=== PATIENT | male | born 1955 | race Caucasian/White ===

== ENCOUNTER 2019-10-26 13:41 | Inpatient (IN) | payer MEDICAID, OTHER ==
[~2019-10-26] VITALS: Ht 172.7 cm; Wt 71.7 kg
[2019-10-26 13:58] VITALS: BP 98/52
--- NOTE | 2019-10-26 14:00 | NUR ---
CANDIS FROM [facility] W C/O GENERALIZED WEAKNESS STARTING TODAY. PT GCS 13 (4,5,4). PT SPEECH IS MUMBLED AND PT IS POOR MEDICAL HX HISTORIAN. PT HAS OBVIOUS TREMORS TO BILAT UPPER EXTREMETIES. DENIES ETOH USE. PT IS CURRENTLY TAKING PSYCHOTROPIC MEDICATION ACCORDING TO DOCUMENTATION FROM FACILITY. PT IS UNABLE TO VERBALIZE HIS MEDICAL HX OR WHY HE IS IN THE ER AT THIS TIME. PT REFUSES TO REMOVE CLOTHING TO CHANGE INTO GOWN. PT IS HYPOTENSIVE AT 95/55 AT THIS TIME, ERMD AWARE. FSBS 98. NO SLURRED SPEECH, FACIAL DROOP OR UNILATERAL WEAKNESS NOTED. PT IN BED IN LOW POSITION, SIDE RAIL UP X2 FOR PT SAFTEY. PT PLACED ON BEDSIDE EPIC WILLOW SPECIALIST AT THIS TIME.
--- NOTE | 2019-10-26 14:38 | NUR ---
ATTEMPTED TO CONACT RENÉE GUEST R[facility] VERDE FOR MORE INFORMATION, NO ANSWER @ [phone]
[2019-10-26] MEDS ORDERED: ACETAMINOPHEN EXTRA STRENGTH 500 MG TAB ONE (14:45)
[2019-10-26] MEDS ORDERED: ACETAMINOPHEN EXTRA STRENGTH 500 MG TAB PO ONE (14:45)
[2019-10-26] MEDS ORDERED: NACL 0.9% 2,000 ML IV SCH (15:33)
[2019-10-26] MEDS ORDERED: diphenhydrAMINE 50 MG/ML VIAL IVP ONE (15:35)
--- NOTE | 2019-10-26 15:53 | NUR ---
MOVED TO ED 05 FOR CONTINUED OBSERVATION
[2019-10-26] MEDS ORDERED: PIPERACILLIN/TAZOBACTAM 3.375 GM in DEXTROSE 5% 50 ML IV ONE (16:00)
[2019-10-26] MEDS ORDERED: LORazepam 2 MG/ML VIAL IVP ONE (16:05)
--- NOTE | 2019-10-26 16:13 | NUR ---
XRAY AT BEDSIDE
[2019-10-26] MEDS ORDERED: PIPERACILLIN/TAZOBACTAM 3.375 GM VIAL IV ONE (16:26)
[2019-10-26 16:47] LABS: HEMOGLOBIN 9.6 g/dL (12.0-18.0); MEAN CORPUSCULAR HEMOGLOBIN 32 pg (27-31); MEAN CORPUSCULAR HGB CONC 33 g/dL (33-37); MEAN CORPUSCULAR VOLUME 95.4 fL (80-94); PLATELET COUNT (AUTO) 66 K/uL (140-450); RED BLOOD CELL COUNT(AUTO) 3.04 MIL/uL (4.20-6.10); WHITE BLOOD COUNT (AUTO) 11.5 K/uL (4.8-10.8)
[2019-10-26 17:07] LABS: PROTHROMBIN TIME 12.3 secs (10.8-13.4)
[2019-10-26 17:24] LABS: ANION GAP 13.6 (8-16); CARBON DIOXIDE 21.7 mmol/L (21-32); CREATININE 2.6 mg/dL (0.7-1.3); POTASSIUM 4.3 mmol/L (3.5-5.1); TOTAL BILIRUBIN 0.8 mg/dL (0.0-1.0)
[2019-10-26 17:25] LABS: ALBUMIN 1.9 g/dL (3.4-5.0)
[2019-10-26 17:48] LABS: MAGNESIUM 1.8 mg/dL (1.8-2.4)
[2019-10-26] MEDS ORDERED: NACL 0.9% 1,000 ML IV ONE (17:55)
[2019-10-26 17:57] LABS: ACETONE, SERUM NEGATIVE (NEGATIVE)
[2019-10-26] MEDS ORDERED: ACETAMINOPHEN 325 MG TAB PO PRN (18:00)
[2019-10-26] MEDS ORDERED: ALBUTEROL SULFATE/IPRATROPIU 3 ML SOL IH PRN (18:00)
[2019-10-26] MEDS ORDERED: ONDANSETRON 4 MG/2 ML VIAL IVP PRN (18:00)
[2019-10-26 18:03] LABS: APPEARANCE,URINE CLEAR (CLEAR); BILIRUBIN,URINE NEGATIVE (NEGATIVE); BLOOD, URINE TRACE-I (NEGATIVE); COLOR,URINE YELLOW (YELLOW); LEUKOCYTE ESTERASE ,URINE NEGATIVE (NEGATIVE); NITRITE, URINE NEGATIVE (NEGATIVE); UGLUCOSE NEGATIVE (NEGATIVE)
--- NOTE | 2019-10-26 18:07 | NUR ---
99.1 AUXILLARY AT THIS TIME
[2019-10-26] MEDS ORDERED: FLUN0.02 NS (18:25)
[2019-10-26] MEDS ORDERED: GABA300C PO (18:25)
[2019-10-26] MEDS ORDERED: OLAN7.5T1 PO (18:25)
[2019-10-26] MEDS ORDERED: LORA10TA19 PO (18:25)
[2019-10-26] MEDS ORDERED: OLAN20TA1 PO (18:25)
[2019-10-26] MEDS ORDERED: [UNRECOGNIZED DRUG - CODE] IM (18:27)
[2019-10-26] MEDS ORDERED: TRAZ-343 PO (18:27)
[2019-10-26 18:29] LABS: BASOPHILS % (MANUAL) 0 % (0-2); EOSINOPHILS % (MANUAL) 0 % (0-4); LYMPHOCYTES % (MANUAL) 5 % (20-46); MONOCYTES % (MANUAL) 12 % (5-12)
--- NOTE | 2019-10-26 19:15 | NUR ---
RECEIVED PATIENT FROM ER NURSE KILLIAN. PATIENT IS A/O X2. ADMITTING DX: PNEUMONIA. RESPIRATIONS EVEN, UNLABORED. ON NC 2LPM. SKIN WARM, DRY AND INTACT. ABDOMEN SOFT, NONTENDER. IV SITE TO RIGHT AC 20G CLEAN/DRY AND INTACT. VITALS WERE TAKEN, MRSA SCREEN DONE, ORIENTED PATIENT TO ROOM, STAFF AND CALL LIGHT. PLAN OF CARE WAS DISCUSSED. SAFETY MEASURES IN PLACE. BED IN LOWEST POSITION. CALL LIGHT WITHIN REACH. WILL CONTINUE TO MONITOR.
--- NOTE | 2019-10-26 19:20 | NUR ---
Patient will be admitted to care of DR RAY. Admited to TELE. Will go to room 112B. Belongings list completed. Report to SCOTT WYLIE.
[2019-10-26] MEDS: NACL 0.9% 1,000 ML IV SCH (19:54)
[2019-10-26] MEDS: ALBUTEROL SULFATE/IPRATROPIU 3 ML SOL IH SCH (20:07)
--- NOTE | 2019-10-26 20:09 | NUR ---
SPOKE TO GADIEL FROM [facility] PHONE NUMBER [phone] REGARDING PATIENT. GAVE BRIEF HISTORY BUT INCOMPLETE. SUGGESTED BEST TIME TO CALL WOULD BE ON SUNDAY AT 9-10AM. WILL ENDORSE TO AM SHIFT TO FOLLOW UP.
[2019-10-26 20:40] LABS: FREE T4 (FREE THYROXINE) 1.06 ng/dL (0.76-1.46); PHOSPHORUS 2.9 mg/dL (2.5-4.9); THYROID STIMULATING HORMONE 3.01 uIU/mL (0.34-3.74)
[2019-10-26] MEDS: DOCUSATE SODIUM 100 MG GELCAP PO SCH (20:45)
[2019-10-26 21:01] VITALS: BP 106/70
--- NOTE | 2019-10-26 21:32 | NUR ---
PATIENT ASLEEP. MD AT BEDSIDE. NO S/SX ACUTE DISTRESS. CALL LIGHT WITHIN REACH. WILL CONTINUE TO MONITOR.
[2019-10-26] MEDS ORDERED: CLINDAMYCIN 900 MG/6 ML VIAL IV ONE (21:35)
[2019-10-26] MEDS ORDERED: cefTRIAXone 1,000 MG VIAL ONE (21:36)
[2019-10-26] MEDS: CLINDAMYCIN 900 MG in DEXTROSE 5% 100 ML IV SCH (21:40)
[2019-10-27] VITALS: BP 90/60
--- NOTE | 2019-10-27 00:15 | NUR ---
MADE ROUNDS. PATIENT ASLEEP. NO S/SX ACUTE DISTRESS. CALL LIGHT WITHIN REACH. WILL CONTINUE TO MONITOR.
--- NOTE | 2019-10-27 02:10 | NUR ---
PATIENT ASLEEP AND IN STABLE CONDITION. NO S/SX DISTRESS. CALL LIGHT WITHIN REACH. WILL CONTINUE TO MONITOR.
--- NOTE | 2019-10-27 03:58 | NUR ---
VITALS TAKEN. PATIENT IN STABLE CONDITION. NO S/SX ACUTE DISTRESS. CALL LIGHT WITHIN REACH. WILL CONTINUE TO MONITOR.
[2019-10-27] MEDS: NACL 0.9% 1,000 ML IV SCH ×3 (03:59→23:59)
[2019-10-27 04:00] VITALS: BP 95/60
[2019-10-27] MEDS ORDERED: CLINDAMYCIN 900 MG/6 ML VIAL IV ONE (04:32)
[2019-10-27] MEDS: CLINDAMYCIN 900 MG in DEXTROSE 5% 100 ML IV SCH ×3 (04:40→20:29)
--- NOTE | 2019-10-27 07:05 | NUR ---
ENDORSED PATIENT TO AM SHIFT IN STABLE CONDITION.
--- NOTE | 2019-10-27 07:05 | NUR ---
ENDORSED PATIENT TO AM SHIFT IN STABLE CONDITION.
--- NOTE | 2019-10-27 07:06 | NUR ---
RECEIVED REPORT FROM LACE WEAVER NURSE AT BEDSIDE FOR CONTINUITY OF CARE. PATIENT AOX2, RESPIRATIONS EVEN AND UNLABORED ON 2L O2 VIA NC. FLACC-0. NO S/S OF DISTRESS NOTED. UPDATED BOARD. IV SITE INTACT, CURRENTLY SL, PATIENT WILL BE OFF UNIT FOR CT SCAN. WILL WAIT FOR PATIENT TO COME BACK.
--- NOTE | 2019-10-27 07:06 | NUR ---
PATIENT OUT OF ROOM FOR CT SCAN DATA SME TO ATTEMPT HHN THERAPY AT A LATER TIME
--- NOTE | 2019-10-27 07:15 | NUR ---
PATIENT BACK FROM CT SCAN. WILL WAIT FOR RESULTS. RT PETER IN TO GIVE PATIENT HIS BREATHING TREATMENT.
[2019-10-27] MEDS: ALBUTEROL SULFATE/IPRATROPIU 3 ML SOL IH SCH ×3 (07:29→21:12)
--- NOTE | 2019-10-27 07:29 | NUR ---
LOC DROWSY PATIENT UNABLE TO COMPREHEND/PARTICIPATE IN THE INCENTIVE SPIROMETRY THERAPY AT THIS TIME CATTLE STICKER TO ATTEMPT AT A LATER TIME
[2019-10-27 07:46] LABS: BASOPHILS % (AUTO) 0.1 % (0.0-2.0); EOSINOPHILS % (AUTO) 0.1 % (0.0-4.0); HEMOGLOBIN 9.8 g/dL (12.0-18.0); LYMPHOCYTES # (AUTO) 0.7 K/uL (2.0-11.5); LYMPHOCYTES % (AUTO) 6.1 % (20.5-51.1); MEAN CORPUSCULAR HEMOGLOBIN 32 pg (27-31); MEAN CORPUSCULAR HGB CONC 33 g/dL (33-37); MEAN CORPUSCULAR VOLUME 96.7 fL (80-94); MONOCYTES # (AUTO) 1.4 K/uL (0.8-1.0); MONOCYTES % (AUTO) 12.3 % (1.7-9.3); NEUTROPHILS # (AUTO) 9.5 K/uL (1.8-7.7); NEUTROPHILS % (AUTO) 81.4 % (42.2-75.2); PLATELET COUNT (AUTO) 64 K/uL (140-450); RED CELL DISTRIBUTION WIDTH 15.4 % (11.6-13.7); WHITE BLOOD COUNT (AUTO) 11.7 K/uL (4.8-10.8)
--- NOTE | 2019-10-27 07:55 | NUR ---
PATIENT GETTING US ABDOMEN LIMITED DONE. WILL WAIT FOR RESULTS Addendum: 10/27/19 at 1505 by Duran Stahl RN INCORRECT INFO. US ABDOMEN NOT DONE YET.
[2019-10-27 08:00] VITALS: BP 102/63
[2019-10-27 08:38] LABS: CHOL/HDL RATIO 6.8 (1-4.5); MAGNESIUM 2.1 mg/dL (1.8-2.4); PHOSPHORUS 4.2 mg/dL (2.5-4.9)
[2019-10-27 08:41] LABS: ANION GAP 11.3 (8-16); CREATININE 2.1 mg/dL (0.7-1.3); POTASSIUM 4.3 mmol/L (3.5-5.1)
--- NOTE | 2019-10-27 08:53 | NUR ---
DC PLANNING 64 YRS OLD MALE PATIENT WAS ADMITTED FROM [facility] WITH A DX OF PNEUMONIA. PATIENT HAS A HX OF UNSPECIFIED PSYCH HISTORY . CXR SHOWED LEFT UPPER LOBE INTERMEDIATE OPACITY, LACTIC ACID 2.2 ADMINISTERED IVF FOR HYDRATION AND IV ZOSYN. BLOOD AND URINE CULTURE PENDING , RT PROTOCOL INITIATED AND PULMO CONSULT ORDERED. DC PLAN TO GO TO [facility] WHEN STABLE. CM TO FOLLOW.
--- NOTE | 2019-10-27 09:08 | NUR ---
PATIENT HAS BEEN SCREENED AND CATEGORIZED HIGH NUTRITION RISK. PATIENT WILL BE SEEN WITHIN 1-2 DAYS OF ADMISSION. 10/27/19-10/28/[address]
[2019-10-27] MEDS: DOCUSATE SODIUM 100 MG GELCAP PO SCH ×2 (09:09→20:34)
[2019-10-27] MEDS: FAMOTIDINE 20 MG/2 ML VIAL IV SCH ×2 (09:09→20:34)
[2019-10-27] MEDS: LACTOBACILLUS RHAMNOSUS GG 1 EACH CAP PO SCH (09:09)
[2019-10-27 11:38] VITALS: BP 103/66
--- NOTE | 2019-10-27 11:44 | NUR ---
OT IN TO SEE PATIENT. WILL WAIT FOR HER RECOMMENDATION.
--- NOTE | 2019-10-27 12:55 | NUR ---
PATIENT ACCIDENTALLY PULLED OUT IV WHEN ATTEMPTING TO SIT UP TO USE URINAL. IV CANNULA INTACT. ORIENTED PATIENT TO HOSPITAL. EXPLAINED TO HIM ABOUT NEED FOR IV. HE VERBALIZE UNDERSTANDING. SAFETY PRECAUTION IN PLACE, CALL LIGHT WITHIN REACH, BED IN LOWEST POSITION WITH ALARM ON, WILL CONTINUE TO MONITOR PATIENT.
--- NOTE | 2019-10-27 13:31 | NUR ---
TOLERATED INCENTIVE SPIROMETRY THERAPY WELL WITHOUT ADVERSE REACTIONS NOTED ENCOURAGED PATIENT TO USE INCENTIVE SPIROMETRY EVERY 1-2 HOURS WHILE AWAKE
--- NOTE | 2019-10-27 14:00 | NUR ---
NEW IV INSERTED ON LEFT HAND 18G, INTACT, PATENT, ASYMPTOMATIC. PATIENT ATTEMPTED TO GET OUT OF BED. SO PATIENT NOW MOVED TO ROOM 124A, ALL OF PATIENT'S BELONGINGS BROUGHT TO NEW ROOM. PATIENT TOLERATED MOVE. CALLED US TO FOLLOW UP, [employer], STATED THAT IT WILL SCHEDULED AT 1500. RN VERBALIZED UNDERSTANDING. SAFETY PRECAUTIONS IN PLACE FOR PATIENT, BED IN LOWEST POSITION WITH ALARM ON, CALL LIGHT WITHIN REACH, WILL CONTINUE TO MONITOR PATIENT.
--- NOTE | 2019-10-27 14:43 | NUR ---
Director Of Front Office Note: Basic Screen: Yes High Risk DC Screen [place]: ROSSY Villasenor Relationship: CONSERVATOR Pre-Admission Living Arrangements: [facility] Prior ADL Independent Current Home Health Name/Tel: N/A Current DME/02 Name/Tel: N/A Current Hospice Name/Tel: N/A Current Dialysis Name/Tel: N/A Healthcare Decision Maker: Conservator/Public Guardi Advance Directive No - REFUSED Discipline: Case Mgt/Social Svcs Tentative Discharge Plan/Destination: Board and Care Tentative Discharge Plan Summary: Patient is a 64-year-old male admitted for pneumonia. Patient has no significant PMHX. Patient was admitted from [facility]. SW contacted Beata from [facility]. Per Beata, patient has a conservator by the name of Rossy [phone]. Beata stated she is unable to recall Rossy's last name. Beata also stated that she notified Rossy of patient's hospitalization. At baseline, Beata reports that patient is alert/oriented x4. Beata stated that patient is independent with his ADLs and that patient has been diagnosed with schizophrenia. Beata stated that patient's tentative discharge plan is to return to [facility], as long as patient returns without IV antibiotics. No further needs identified. Signature: MAYRA Null Date: Oct 27, 2019 Time: 14:17
--- NOTE | 2019-10-27 14:49 | NUR ---
10/27/19 RD INITIAL ASSESSMENT COMPLETED PLEASE REFER TO NUTRITION ASSESSMENT UNDER CARE ACTIVITY FOR ESTIMATED NUTRITIONAL NEEDS. 1. RECOMMEND CHOPPED RENAL DIET TOLERATED 2. IF PO INTAKE <50% RECOMMEND NEPRO BID 3. RD TO FOLLOW-UP 3-5 DAYS, MODERATE RISK RADHA ABAD, RD
[2019-10-27 16:45] VITALS: BP 105/67
[2019-10-27] MEDS ORDERED: QUET200T PO (16:55)
[2019-10-27] MEDS ORDERED: [UNRECOGNIZED DRUG - CODE] PO (16:56)
--- NOTE | 2019-10-27 18:01 | NUR ---
PATIENT ATTEMPTED TO GET OUT OF BED. ORIENTED PATIENT TO ROOM AND HOSPITAL. HE ASKED "WHAT HAPPENED TO MY DAMN CIGARETTES?" INFORM HIM HIS BELONGINGS BY HIS BED. PATIENT STATED WANTED TO GO AMA, INFORMED HIM WILL GET HIS DOCTOR SO HE CAN SPEAK ABOUT GOING AMA. PATIENT STATED "YOU WANNA GET SUED, DO YOU KNOW HOW MANY PEOPLE I'VE SUED BEFORE?" RN VERBALIZED UNDERSTANDING AND INFORMED PATIENT ABOUT IF HE WANTED TO GO AMA BACK TO [facility], WOULD HAVE TO SPEAK TO DOCTOR. CONVINCED PATIENT TO WAIT UNTIL AFTER DINNER, DOCTOR WILL GO SPEAK TO HIM ABOUT AMA.
--- NOTE | 2019-10-27 18:13 | NUR ---
DINNER CAME, PATIENT SAT UP. PATIENT CURRENTLY EATING DINNER COMFORTABLY, NO COMPLAINTS AT THIS TIME. SAFETY PRECAUTIONS IN PLACE, BED IN LOWEST POSITION WITH ALARM ON, CALL LIGHT WITHIN REACH, WILL CONTINUE TO MONITOR PATIENT.
[2019-10-27] MEDS ORDERED: DIVA250E1 PO (18:14)
[2019-10-27] MEDS ORDERED: ROPI2TER PO (18:15)
[2019-10-27] MEDS ORDERED: TRAZ-343 PO (18:16)
[2019-10-27] MEDS ORDERED: BEN50 PO (18:17)
--- NOTE | 2019-10-27 19:23 | NUR ---
REPORT GIVEN TO CONSERVATION WORKER NURSE AT BEDSIDE FOR CONTINUITY OF CARE. PATIENT SLEEPING COMFORTABLY IN BED, IN STABLE CONDITION.
--- NOTE | 2019-10-27 19:24 | NUR ---
RECEIVED REPORT FROM AM SHIFT. TELE PATIENT. STABLE CONDITION. A/O X2, ABLE TO MAKE NEEDS KNOWN. RESPIRATIONS EVEN, UNLABORED. SKIN WARM, DRY TO TOUCH. IV SITE PATENT/INTACT. ABDOMEN SOFT, NONTENDER. NO S/SX ACUTE DISTRESS. CONTINUE WITH PLAN OF CARE. CALL LIGHT WITHIN REACH. WILL CONTINUE TO MONITOR.
[2019-10-27 20:00] VITALS: BP 115/69
--- NOTE | 2019-10-27 20:16 | NUR ---
* ST NOTE * Pt seen at bedside w/nsg Ky present. Pt asleep upon entering room. Upon awakening, pt alert and cooperative, reporting no c/o pain at this time. Bedside dysphagia and oral mechanism exams completed. See evaluation report for further details. Pt tolerating 4/4 alternating PO trials of regular solid saltine crackers as well as 6/6 alternating PO trials of thin liquid apple juice via a straw and a cup, all w/o s/s of aspiration. Pt and caregiver/Nsg Ky education completed re: aspiration precautions and safe swallow compensatory strategies pt and caregivers could utilize to aid pt w/swallow function, w/pt and nsg agreeable. Because pt appearing to have difficulty masticating d/t observed extended amount of mastication time required per bolus, it is recommended pt's PO diet consistency be modified to mechanical soft-ground textures w/thin liquids for all meals, w/aspiration precautions in place. No further ST follow up recommended at this time. Pt and caregiver/Nsg Ky education completed re: results of evaluation; benefits of abiding by aspiration precautions and recommended PO diet consistency; and prognosis for improvement; w/pt and caregiver/Nsg Ky verbalizing understanding and agreement w/clinician's recommendations. Recommend: - PO DIET CONSISTENCY OF MECHANICAL SOFT-GROUND TEXTURES W/THIN LIQUIDS for all meals - PO MEDICATION ADMINISTRATION CRUSHED IN PUREE OR GROUND TEXTURES - MAINTAIN STRICT ASPIRATION PRECAUTIONS DURING PT'S PO INTAKE - Pt requires assistance w/feeding - FEEDER TO SIT PT UP AT 80-90 DEGREE ANGLE DURING PO INTAKE; FEED PT SLOWLY; ALTERNATE BTWN SOLIDS & LIQUIDS; AND PROVIDE SMALL BITES/SIPS No further ST follow up recommended at this time. NOMS Level 3
[2019-10-27] MEDS: rOPINIRole 0.25 MG TAB PO SCH (20:30)
[2019-10-27] MEDS: traZODone 50 MG TAB PO SCH (20:31)
[2019-10-27] MEDS: QUEtiapine FUMARATE 100 MG TAB PO SCH (20:31)
[2019-10-27] MEDS: DIVALPROEX 250 MG TABEC PO SCH (20:33)
[2019-10-27] MEDS ORDERED: diphenhydrAMINE 50 MG CAP PO SCH (21:00)
--- NOTE | 2019-10-27 21:03 | NUR ---
PATIENT IN STABLE CONDITION. DUE MEDS GIVEN ORDERED. NO S/SX ACUTE DISTRESS. WILL CONTINUE TO MONITOR.
--- NOTE | 2019-10-27 21:24 | NUR ---
RECEIVED PATIENT ON ROOM AIR, PULSE OX SAT 96%. SCHEDULED BREATHING TREATMENT ADMINISTERED. TOLERATED TX WELL WITHOUT ADVERSE SIDE EFFECTS. FOLLOW-UP EDUCATION ON USE OF INCENTIVE SPIROMETER DONE. PATIENT PERFORMED RETURN DEMONSTRATION WITH FAIR EFFORT. NO ACUTE RESPIRATORY DISTRESS NOTED AT THIS TIME. WILL CONTINUE TO MONITOR.
--- NOTE | 2019-10-27 23:08 | NUR ---
PATIENT ACCIDENTALLY PULLED OUT IV. IV CANNULA INTACT. NO ACTIVE BLEEDING NOTED. ORIENTED PATIENT TO HOSPITAL AND EXPLAINED TO HIM ABOUT THE NEED FOR IV. PATIENT VERBALIZED UNDERSTANDING. SAFETY PRECAUTIONS IN PLACE. CALL LIGHT WITHIN REACH. BED IS IN LOWEST POSITION. NO S/SX ACUTE DISTRESS. WILL CONTINUE TO MONITOR.
--- NOTE | 2019-10-27 23:30 | NUR ---
INSERTED NEW IV 20G. PATIENT TOLERATED WELL. GOOD BLOOD RETURN. SITE IS PATENT AND INTACT WITH NO S/SX INFILTRATION. CALL LIGHT WITHIN REACH. WILL CONTINUE TO MONITOR.
[2019-10-28] VITALS: BP 108/64
--- NOTE | 2019-10-28 00:10 | NUR ---
VITALS WERE TAKEN. PATIENT IN STABLE CONDITION. NO DISTRESS NOTED. WILL CONTINUE TO MONITOR.
--- NOTE | 2019-10-28 02:00 | NUR ---
MADE ROUNDS. PATIENT IN STABLE CONDITION, SLEEPING WELL. NO C/O PAIN. NO S/SX ACUTE DISTRESS. CALL LIGHT WITHIN REACH. WILL CONTINUE TO MONITOR.
[2019-10-28 04:00] VITALS: BP 102/60
--- NOTE | 2019-10-28 04:10 | NUR ---
PATIENT ASLEEP. NO S/SX ACUTE DISTRESS. NO C/O PAIN. CALL LIGHT WITHIN REACH. WILL CONTINUE TO MONITOR.
[2019-10-28] MEDS: CLINDAMYCIN 900 MG in DEXTROSE 5% 100 ML IV SCH ×3 (04:48→20:50)
[2019-10-28] MEDS: ALBUTEROL SULFATE/IPRATROPIU 3 ML SOL IH SCH ×3 (06:00→19:23)
[2019-10-28 06:34] LABS: ANION GAP 14.5 (8-16); CARBON DIOXIDE 21.6 mmol/L (21-32); CREATININE 1.6 mg/dL (0.7-1.3); POTASSIUM 4.1 mmol/L (3.5-5.1)
[2019-10-28 06:36] LABS: HEMATOCRIT 29.4 % (36-52); HEMOGLOBIN 9.7 g/dL (12.0-18.0); MEAN CORPUSCULAR HEMOGLOBIN 32 pg (27-31); MEAN CORPUSCULAR HGB CONC 33 g/dL (33-37); MEAN CORPUSCULAR VOLUME 96.5 fL (80-94); PLATELET COUNT (AUTO) 87 K/uL (140-450); RED BLOOD CELL COUNT(AUTO) 3.04 MIL/uL (4.20-6.10); RED CELL DISTRIBUTION WIDTH 15.5 % (11.6-13.7); WHITE BLOOD COUNT (AUTO) 9.3 K/uL (4.8-10.8)
[2019-10-28 06:50] LABS: MAGNESIUM 1.9 mg/dL (1.8-2.4); PHOSPHORUS 3.4 mg/dL (2.5-4.9)
[2019-10-28 06:57] LABS: EOSINOPHILS % (MANUAL) 3 % (0-4); LYMPHOCYTES % (MANUAL) 19 % (20-46); MONOCYTES % (MANUAL) 10 % (5-12)
--- NOTE | 2019-10-28 07:14 | NUR ---
ENDORSED PATIENT IN STABLE CONDITION TO AM SHIFT.
--- NOTE | 2019-10-28 07:15 | NUR ---
RECEIVED REPORT FROM FIRE CONTROL OFFICER NURSE SCOTT. PT IS SLEEPING. NO SIGNS OF DISTRESS. PT HAS IV ON R HAND 20G INFUSING AT 100ML/HR. SKIN INTACT, FULL CODE, ALLERGY WITH PENICILLIN. WILL CONTINUE MONITORING.
[2019-10-28 08:00] VITALS: BP 109/66
[2019-10-28 08:07] LABS: FOLIC ACID 18.1 ng/mL (>3.0)
[2019-10-28] MEDS: LACTOBACILLUS RHAMNOSUS GG 1 EACH CAP PO SCH (08:59)
[2019-10-28] MEDS: QUEtiapine FUMARATE 100 MG TAB PO SCH ×2 (09:00→20:39)
[2019-10-28] MEDS: DOCUSATE SODIUM 100 MG GELCAP PO SCH ×2 (09:00→20:39)
--- NOTE | 2019-10-28 09:00 | NUR ---
SCHEDULED MEDS GIVEN. WILL CONTINUE MONITORING
[2019-10-28] MEDS: FAMOTIDINE 20 MG/2 ML VIAL IV SCH ×2 (09:01→20:40)
[2019-10-28] MEDS: DIVALPROEX 250 MG TABEC PO SCH ×2 (09:01→20:38)
[2019-10-28] MEDS: NACL 0.9% 1,000 ML IV SCH ×2 (09:12→16:45)
[2019-10-28 12:00] VITALS: BP 123/78
[2019-10-28 16:00] VITALS: BP 113/61
--- NOTE | 2019-10-28 16:00 | NUR ---
PT IS SITTING ON THE CHAIR. NO SIGNS OF DISTRESS. V/S TAKEN, WITHIN NORMAL RANGE. Addendum: 10/28/19 at 1644 by Rona Pritchett RN PT IS DISORIENTED AND TRYING TO LEAVE THE BED. BED ALARM ON. PT TOOK OUT HIS TELE MONITOR. ASSISTED PT BACK TO BED AND PLACED NEW LEADS. PT CALMED DOWN AND WENT BACK TO SLEEP
--- NOTE | 2019-10-28 19:10 | NUR ---
RECIEVED PT AAOX2 , NO SIGNS OF ACUTE DISTRESS NOTED AT THIS TIME - O2 SAT WNL , IV SITE INTACT AND PATENT . FLACC O - RESTING ON BED COMFORTABLY . ON SAFETY / FALL PRECAUTION PROTOCOL - BED ALARM ON . POC DISCUSSED BUT POOR UNDERSTANDING DUE TO MENTAL STATUS. WILL CONT. TO MONITOR.
--- NOTE | 2019-10-28 19:10 | NUR ---
REPORT GIVEN TO CASTING CARRIER NURSE AT BEDSIDE FOR CONTINUITY OF CARE. PT IS AWAKE AND NO SIGN OF DISTRESS.
[2019-10-28 20:00] VITALS: BP 122/65
[2019-10-28] MEDS: traZODone 50 MG TAB PO SCH (20:38)
[2019-10-28] MEDS: rOPINIRole 0.25 MG TAB PO SCH (20:39)
--- NOTE | 2019-10-28 22:00 | NUR ---
MADE ROUNDS . NO S/SXS OF ACUTE DISTRESS NOTED AT THIS TIME , CALL LIGHT WITHIN REACH . BED ALARM ON.
[2019-10-29] VITALS: BP 106/60
--- NOTE | 2019-10-29 | NUR ---
MADE ROUNDS . RESP. EVEN AND UNLABORED . SLEEPY - DUE DESYREL / TAB . GIVEN P.O WHILE AGO - AWAKEABLE . WILL CONT. TO MONITOR.
[2019-10-29] MEDS: NACL 0.9% 1,000 ML IV SCH ×2 (03:10→15:54)
[2019-10-29 04:00] VITALS: BP 122/63
[2019-10-29] MEDS: CLINDAMYCIN 900 MG in DEXTROSE 5% 100 ML IV SCH ×3 (05:01→20:07)
--- NOTE | 2019-10-29 06:00 | NUR ---
MADE ROUNDS . NO S/SXS OF ACUTE DISTRESS NOTED AT THIS TIME. WILL CONT. TO MONITOR.
[2019-10-29 06:52] LABS: ANION GAP 13.7 (8-16); CARBON DIOXIDE 23.1 mmol/L (21-32); CREATININE 1.5 mg/dL (0.7-1.3); POTASSIUM 3.8 mmol/L (3.5-5.1)
[2019-10-29 06:58] LABS: MAGNESIUM 1.6 mg/dL (1.8-2.4); PHOSPHORUS 4.5 mg/dL (2.5-4.9)
[2019-10-29] MEDS: ALBUTEROL SULFATE/IPRATROPIU 3 ML SOL IH SCH ×3 (07:10→19:00)
--- NOTE | 2019-10-29 07:20 | NUR ---
RECEIVED REPORT FROM PERFORMING ARTIST NURSE. PATIENT LYING DOWN IN BED SLEEPING, AROUSABLE BY VOICE. NO DISTRESS NOTED. DENIES ANY PAIN. NO DISTRESS NOTED. AAOX1, CALM, COOPERATIVE AT THIS TIME. SKIN INTACT. RESPIRATIONS EVEN, UNLABORED, ON ROOM AIR. IV SITE INTACT, PATENT, AND INFUSING IVF PER MD ORDERS. REVIEWED PLAN OF CARE WITH PATIENT. PATIENT VERBALIZED UNDERSTANDING. SAFETY MEASURES IN PLACE, CALL LIGHT WITHIN REACH. WILL CONTINUE TO MONITOR.
--- NOTE | 2019-10-29 07:20 | NUR ---
ENDORSED TO AM SHIFT FOR CONT. OF CARE , W/ STABLE CONDITION . RT ON BEDSIDE.
[2019-10-29 07:26] LABS: HEMATOCRIT 31.5 % (36-52); HEMOGLOBIN 10.4 g/dL (12.0-18.0); MEAN CORPUSCULAR HEMOGLOBIN 32 pg (27-31); MEAN CORPUSCULAR HGB CONC 33 g/dL (33-37); MEAN CORPUSCULAR VOLUME 95.3 fL (80-94); PLATELET COUNT (AUTO) 115 K/uL (140-450); RED BLOOD CELL COUNT(AUTO) 3.31 MIL/uL (4.20-6.10); WHITE BLOOD COUNT (AUTO) 9.2 K/uL (4.8-10.8)
[2019-10-29 08:00] VITALS: BP 132/77
[2019-10-29 08:34] LABS: LYMPHOCYTES % (MANUAL) 16 % (20-46); MONOCYTES % (MANUAL) 20 % (5-12)
[2019-10-29 08:35] LABS: BASOPHILS % (MANUAL) 0 % (0-2); EOSINOPHILS % (MANUAL) 4 % (0-4)
[2019-10-29 08:36] LABS: METAMYELOCYTES % 1 % (0-0); MYELOCYTES % 2 % (0-0)
[2019-10-29] MEDS: FAMOTIDINE 20 MG/2 ML VIAL IV SCH ×2 (09:40→20:07)
[2019-10-29] MEDS: DIVALPROEX 250 MG TABEC PO SCH ×2 (09:40→20:08)
[2019-10-29] MEDS: LACTOBACILLUS RHAMNOSUS GG 1 EACH CAP PO SCH (09:40)
[2019-10-29] MEDS: DOCUSATE SODIUM 100 MG GELCAP PO SCH ×2 (09:40→20:07)
[2019-10-29] MEDS: QUEtiapine FUMARATE 100 MG TAB PO SCH ×2 (09:40→20:08)
--- NOTE | 2019-10-29 09:47 | NUR ---
PATIENT LYING DOWN IN BED SLEEPING, AROUSABLE BY VOICE. NO DISTRESS NOTED. SCHEDULED MEDICATIONS DUE GIVEN. WILL CONTINUE TO MONITOR.
[2019-10-29] MEDS ORDERED: NICOTINE TRANSD SYS 14 MG/24 HR PATCH TD SCH (10:00)
[2019-10-29 12:00] VITALS: BP 120/68
--- NOTE | 2019-10-29 12:00 | NUR ---
PATIENT SITTING DOWN IN BED WITH LUNCH TRAY IN FRONT. CONDITION UNCHANGED. WILL CONTINUE TO MONITOR.
--- NOTE | 2019-10-29 14:07 | NUR ---
PATIENT LYING DOWN IN BED SLEEPING, AROUSABLE BY VOICE. NO DISTRESS NOTED. FLACC 0. SCHEDULED MEDICATIONS DUE GIVEN. WILL CONTINUE TO MONITOR.
--- NOTE | 2019-10-29 15:54 | NUR ---
PATIENT LYING DOWN IN BED SLEEPING, AROUSABLE BY VOICE. NO DISTRESS NOTED. DENIES ANY PAIN. WILL CONTINUE TO MONITOR.
[2019-10-29 16:00] VITALS: BP 103/61
--- NOTE | 2019-10-29 18:00 | NUR ---
PATIENT LYING DOWN IN BED. CONDITION UNCHANGED. WILL CONTINUE TO MONITOR.
--- NOTE | 2019-10-29 19:17 | NUR ---
GAVE REPORT TO BULK SYSTEM OPERATOR NURSE FOR CONTINUITY OF CARE PATIENT IN STABLE CONDITION.
--- NOTE | 2019-10-29 19:20 | NUR ---
RECEIVED PT ON BED, AAOX1, CONFUSED DUE TO HX OF DEMENTIA BUT ABLE TO FOLLOW COMMANDS, VITAL SIGNS STABLE, DENIES ANY PAIN, NO SOB NOTED SAT-95% ON ROOM AIR, IVF INFUSING WELL, SAFETY MEASURES IN PLACE, CALL LIGHT WITHIN REACH.
[2019-10-29 20:00] VITALS: BP 117/74
[2019-10-29] MEDS: traZODone 50 MG TAB PO SCH (20:08)
[2019-10-29] MEDS: rOPINIRole 0.25 MG TAB PO SCH (20:09)
--- NOTE | 2019-10-29 20:30 | NUR ---
DUE MEDS ADMINISTERED WITH EDUCATION PROVIDED, PROVIDED WITH CRANBERRY JUICE X2 PER REQUEST, TOLERATED WELL, ALL NEEDS ATTENDED.
--- NOTE | 2019-10-29 21:40 | NUR ---
PT SEEM TRYING TO GET OOB, STATED HE WANTS VOID, ASSISTED WITH URINAL, VOIDED FREELY 500 CLEAR YELLOW URINE, MONITORED CLOSELY.
[2019-10-30] VITALS: BP 96/53
--- NOTE | 2019-10-30 | NUR ---
PT SLEEPING, EASILY AROUSABLE, VITAL SIGNS STABLE, DENIES ANY PAIN, NO SOB NOTED, ASSISTED TO USE URINAL, VOIDED FREELY, IVF INFUSING WELL, CONTINUE TO MONITOR CLOSELY.
[2019-10-30] MEDS: NACL 0.9% 1,000 ML IV SCH ×2 (02:03→07:50)
--- NOTE | 2019-10-30 03:50 | NUR ---
PT AWAKE, COMPLAINING OF HEADACHE, MEDICATED PRN WITH TYLENOL, VITAL SIGNS STABLE, NO SOB NOTED, SANDWICH PROVIDED PER REQUEST, GOOD APPETITE, MONITORED CLOSELY.
[2019-10-30 04:00] VITALS: BP 126/77
[2019-10-30] MEDS: CLINDAMYCIN 900 MG in DEXTROSE 5% 100 ML IV SCH ×2 (04:30→13:15)
--- NOTE | 2019-10-30 07:08 | NUR ---
RECEIVED REPORT FROM DEJAN BLANCAS. PT ORIENTED X1, SHOWS SIGNS OF CONFUSION. PT ON TELE MONITOR, SR. IV ON RT HAND 20 GA RUNNING IVF PER ORDER. RESPIRATIONS EVEN AND UNLABORED ON RA. ABD SOFT, ACTIVE BS, LBM 10/29. SKIN IS INTACT, WARM TO TOUCH. PT ON FALL RISK PRECAUTIONS, SAFETY MEASURES IN PLACE. REVIEWED POC WITH PT, WILL NEED REINFORCEMENT.
--- NOTE | 2019-10-30 07:08 | NUR ---
PT AWAKE, NO SIGNS OF DISTRESS, BEDSIDE REPORT GIVEN TO DEJAN STRINGER FOR CONTINUITY OF CARE.
[2019-10-30 07:40] LABS: HEMATOCRIT 28.7 % (36-52); HEMOGLOBIN 9.5 g/dL (12.0-18.0); MEAN CORPUSCULAR HEMOGLOBIN 32 pg (27-31); MEAN CORPUSCULAR HGB CONC 33 g/dL (33-37); MEAN CORPUSCULAR VOLUME 95.5 fL (80-94); PLATELET COUNT (AUTO) 119 K/uL (140-450); RED BLOOD CELL COUNT(AUTO) 3.01 MIL/uL (4.20-6.10); RED CELL DISTRIBUTION WIDTH 15.1 % (11.6-13.7)
[2019-10-30] MEDS: ALBUTEROL SULFATE/IPRATROPIU 3 ML SOL IH SCH ×3 (07:54→13:59)
[2019-10-30 08:00] VITALS: BP 100/64
[2019-10-30 08:08] LABS: CARBON DIOXIDE 25.8 mmol/L (21-32); CREATININE 1.5 mg/dL (0.7-1.3); POTASSIUM 3.8 mmol/L (3.5-5.1)
[2019-10-30 08:18] LABS: EOSINOPHILS % (MANUAL) 9 % (0-4); LYMPHOCYTES % (MANUAL) 25 % (20-46); MONOCYTES % (MANUAL) 10 % (5-12)
[2019-10-30 08:21] LABS: MAGNESIUM 1.6 mg/dL (1.8-2.4); PHOSPHORUS 4.1 mg/dL (2.5-4.9)
[2019-10-30] MEDS ORDERED: LEVO750T2 PO (08:30)
[2019-10-30] MEDS ORDERED: AZIT250T3 PO (08:45)
[2019-10-30] MEDS ORDERED: INFLUENZA VACCINE QUAD 0.5 ML SYR IMVAC PRN (08:55)
[2019-10-30] MEDS ORDERED: PNEUMOCOCCAL VACCINE 23 MCG/0.5 ML VIAL IMVAC SCH (08:55)
[2019-10-30] MEDS ORDERED: NICOTINE TRANSD SYS 14 MG/24 HR PATCH TD SCH (09:00)
[2019-10-30] MEDS: FAMOTIDINE 20 MG/2 ML VIAL IV SCH (09:16)
[2019-10-30] MEDS: QUEtiapine FUMARATE 100 MG TAB PO SCH (09:17)
[2019-10-30] MEDS: LACTOBACILLUS RHAMNOSUS GG 1 EACH CAP PO SCH (09:17)
[2019-10-30] MEDS: DOCUSATE SODIUM 100 MG GELCAP PO SCH (09:17)
[2019-10-30] MEDS: DIVALPROEX 250 MG TABEC PO SCH (09:17)
--- NOTE | 2019-10-30 09:20 | NUR ---
ADMINISTERED MORNING MEDICATIONS PER ORDER AND INFLUENZA VACCINE TO LT DELTOID, EXPLAINED INDICATIONS AND POTENTIAL SIDE EFFECTS OF EACH MEDICATION.
--- NOTE | 2019-10-30 10:00 | NUR ---
NOTED NON-PITTING EDEMA TO RT ARM, PT SAID "NO" WHEN ASKED IF THERE IS PAIN TO ARM, FLACC 0. STOPPED IVF, ELEVATED ARM WITH PILLOW AND APPLIED ICE PACK TO REDUCE SWELLING. WILL CONTINUE TO MONITOR. Addendum: 10/30/19 at 1049 by Margaret Solano RN LATE ENTRY 10/30/2019 1000 IV INSPECTED, FLUSHING WITH NO RESISTANCE. DISCONTINUED IV TO RT HAND, CANNULA INTACT WITH NO ACTIVE BLEEDING NOTED.
[2019-10-30] MEDS ORDERED: MAGNESIUM OXIDE 400 MG TAB PO SCH (10:17)
--- NOTE | 2019-10-30 10:30 | NUR ---
USING UNIVERSAL PRECAUTIONS, STARTED IV ON 1ST ATTEMPT ON LT WRIST 22 GA, FLUSHING WELL WITH NO RESISTANCE.
[2019-10-30 12:00] VITALS: BP 110/70
--- NOTE | 2019-10-30 12:30 | NUR ---
PT NOTIFIED THAT LUNCH WILL BE COMING SOON. PT IS AWARE THAT HE IS GOING HOME TODAY, PT HAS NO SIGNS OF DISTRESS AT THIS TIME.
--- NOTE | 2019-10-30 13:03 | NUR ---
Late entry. Confirmed with RN that 0.9 NS IV completed at 1800, and another 0.9 NS IV completed at 1900. Zosyn IV completed at 1715.
--- NOTE | 2019-10-30 13:59 | NUR ---
pt going home
--- NOTE | 2019-10-30 14:15 | NUR ---
PT HAS BEEN DISCHARGED. ALL PAPERWORK SIGNED BY GLEN, ALL QUESTIONS ANSWERED BY RN. ALL BELONGINGS AND PRESCRIPTIONS IN PT POSSESSION. NOTIFIED GLEN THAT NICOTINE PATCH WAS PLACED ON RT SHOULDER AND MAY BE REMOVED TOMORROW MORNING. IV DISCONTINUED WITH CANNULA INTACT. WRISTBANDS AND TELE MONITOR REMOVED. PT TRANSFERRED OUT OF UNIT VIA WHEELCHAIR, GLEN AND KILN TENDER AT SIDE. PT IN STABLE CONDITION.
== END 2019-10-30 14:15 | disposition home or self-care (01) | DRG 720 ==
LOC: MED 13:41 → MTU 17:59
PROVIDERS: ADMIT General Practice; ATTEND General Practice
PROC: 3E0234Z Introduction of Serum, Toxoid and Vaccine into Muscle, Percutaneous Approach (ICD-10-PCS; principal; 2019-10-30)
DX: A41.9 Sepsis, unspecified organism (principal); N17.0 Acute kidney failure with tubular necrosis; E43 Unspecified severe protein-calorie malnutrition; G93.41 Metabolic encephalopathy; J18.9 Pneumonia, unspecified organism; D69.6 Thrombocytopenia, unspecified; E83.42 Hypomagnesemia; E87.8 Other disorders of electrolyte and fluid balance, not elsewhere classified; N18.4 Chronic kidney disease, stage 4 (severe); E87.1 Hypo-osmolality and hyponatremia; T43.595A Adverse effect of other antipsychotics and neuroleptics, initial encounter; F29 Unspecified psychosis not due to a substance or known physiological condition; D64.9 Anemia, unspecified; E83.51 Hypocalcemia; E07.89 Other specified disorders of thyroid; E86.0 Dehydration; J44.1 Chronic obstructive pulmonary disease with (acute) exacerbation; F17.210 Nicotine dependence, cigarettes, uncomplicated; Z23 Encounter for immunization; Z79.899 Other long term (current) drug therapy; Z88.0 Allergy status to penicillin; Y92.89 Other specified places as the place of occurrence of the external cause; Z68.24 Body mass index [BMI] 24.0-24.9, adult
CPT/HCPCS: 36415; 36600; 70450; 71045; 71250; 76705; 80048; 80053; 81003; 82009; 82150; 82550; 82553; 82607; 82728; 82746; 82803; 83036; 83540; 83605; 83690; 83735; 83874; 83880; 84100; 84439; 84443; 84484; 85025; 85045; 85610; 85730; 87040; 87081; 87086; 87804; 90732; 92610; 93005; 94640; 97110; 97112; 97116; 97530; 99285; C1758; J0696; J1200; J2060; J2543; J3490; J7030; J7060; J7620; Q0092

== ENCOUNTER 2020-09-15 18:06 | Emergency (ER) | payer MEDICARE, OTHER ==
[~2020-09-15] VITALS: Ht 188 cm; Wt 113.4 kg
[~2020-09-15 18:06] MED LIST: AZIT250T3 PO; BEN50 PO; DIVA250E1 PO; LEVO750T2 PO; QUET200T PO; ROPI2TER PO; TRAZ-343 PO; [UNRECOGNIZED DRUG - CODE] PO
--- NOTE | 2020-09-15 18:10 | NUR ---
PT PLACED IN BED 5.
--- NOTE | 2020-09-15 18:10 | NUR ---
PATIENT CANDIS BLS TO ER BED 05
--- NOTE | 2020-09-15 18:18 | NUR ---
DR. BRIGGS AT BEDSIDE FOR EXAM
[2020-09-15 18:32] VITALS: BP 115/57
--- NOTE | 2020-09-15 18:36 | NUR ---
PORTABLE XRAY DONE
--- NOTE | 2020-09-15 18:40 | NUR ---
PATIENT PRESENTS TO ED WITH SI . PT STATES HE WISHED TO COME TO THE ER TO BE EUTHANIZED. DENIES N/V/D; SKIN IS PINK/WARM/DRY; AAOX2 WITH EVEN AND STEADY GAIT; LUNGS CLEAR BL; HR EVEN AND REGULAR; PT DENIES ANY FEVER, CP, SOB, OR COUGH AT THIS TIME; PATIENT STATES PAIN OF 0/10 AT THIS TIME; VSS; PATIENT POSITIONED FOR COMFORT; HOB ELEVATED; BEDRAILS UP X2; BED DOWN. ER MD MADE AWARE OF PT STATUS.
--- NOTE | 2020-09-15 18:55 | NUR ---
ROMAN SWAB SENT
--- NOTE | 2020-09-15 19:14 | NUR ---
Pt report RECEIVED FROM DEJAN QUICK. Transfer of care at this time.
[2020-09-15] MEDS ORDERED: HALOPERIDOL IM 5 MG/ML VIAL ONE (22:17)
[2020-09-15] MEDS ORDERED: BACITRACIN OINT 500 UNITS/GM PKT TP ONE (22:47)
[2020-09-16 07:12] VITALS: BP 115/57
--- NOTE | 2020-09-16 07:14 | NUR ---
SEE PAPER CHART, AND NOTES IN CHART.
== END 2020-09-16 06:50 | disposition home or self-care (01) ==
LOC: MED 18:06
DX: F20.9 Schizophrenia, unspecified (principal); R45.851 Suicidal ideations; F17.210 Nicotine dependence, cigarettes, uncomplicated; F12.90 Cannabis use, unspecified, uncomplicated; Z88.0 Allergy status to penicillin; Z79.899 Other long term (current) drug therapy
CPT/HCPCS: 73630; 80053; 84484; 85025; 87426; 93005; 99285; G0480; G0482; J1630

== ENCOUNTER 2021-05-30 18:58 | Emergency (ER) | payer MEDICARE, MEDICAID ==
[~2021-05-30] VITALS: Ht 177.8 cm; Wt 79.4 kg
[~2021-05-30 18:58] MED LIST changes: +ACET-1182 PO; -AZIT250T3 PO; -BEN50 PO; +BENZ-203 PO; +BUS5 PO; -DIVA250E1 PO; +DIVA500E2 PO; -LEVO750T2 PO; +LURA120T PO; -QUET200T PO; +RISP0.5T3 PO; -ROPI2TER PO; -[UNRECOGNIZED DRUG - CODE] PO
[2021-05-30 19:00] VITALS: BP 94/53
--- NOTE | 2021-05-30 19:00 | NUR ---
BIBA TO BED 7
--- NOTE | 2021-05-30 19:20 | NUR ---
65 [facility]/O [facility] MECHAN[facility] F[facility] AT [facility]OUND LEVEL. DENIES LOC. SKIN ABRASION TO L PINKY FINGER. PT. AAOX2 TO NAME AND PLACE ONLY. VSS. DENIES N/V/D; SKIN IS PINK/WARM/DRY; HR EVEN AND REGULAR; PT DENIES ANY FEVER, CP, SOB, OR COUGH AT THIS TIME; PATIENT POSITIONED FOR COMFORT; HOB ELEVATED; BEDRAILS UP X2; BED DOWN. ER MD MADE AWARE OF PT STATUS. PMH:SCHIZOPHRENIA, HEP C, COPD ALLERGIES:PCN
--- NOTE | 2021-05-30 19:45 | NUR ---
DR. GORDON AT BEDSIDE
--- NOTE | 2021-05-30 20:44 | NUR ---
CT AT BEDSIDE
--- NOTE | 2021-05-30 20:45 | NUR ---
PT TAKEN TO CT
--- NOTE | 2021-05-30 21:30 | NUR ---
NO NURSING INTERVENTIONS NEEDED.
[2021-05-30] MEDS ORDERED: ELIMC TP (22:32)
[2021-05-30 23:23] VITALS: BP 94/53
--- NOTE | 2021-05-30 23:23 | NUR ---
Patient discharged with v/s stable. Written and verbal after care instructions given and explained. Patient alert, oriented and verbalized understanding of instructions. Ambulatory with steady gait. All questions addressed prior to discharge. ID band removed. Patient advised to follow up with PMD. Rx of ELIMITE given. Patient educated on indication of medication including possible reaction and side effects. Opportunity to ask questions provided and answered.
--- NOTE | 2021-05-30 23:43 | NUR ---
CALLED [facility] TO INFORM PT. TAKEN BACK VIA TAXI VOUCHER.
== END 2021-05-30 22:43 | disposition home or self-care (01) ==
LOC: MED 18:58
DX: S09.90XA Unspecified injury of head, initial encounter (principal); B86 Scabies; J44.9 Chronic obstructive pulmonary disease, unspecified; F20.9 Schizophrenia, unspecified; Z86.19 Personal history of other infectious and parasitic diseases; W19.XXXA Unspecified fall, initial encounter; Y93.89 Activity, other specified; Y92.89 Other specified places as the place of occurrence of the external cause; Y99.8 Other external cause status
CPT/HCPCS: 70450; 99284